=== PATIENT | female | born 1965 | race Caucasian/White ===

== ENCOUNTER → 2017-02-08 | Day surgery (SDC) | payer BC ==
[2017-02-01 15:34] LABS: BASO % 0.8 %; BASO ABS # 0.04 K/uL (0-0.2); COMPLETE YES; EOS % 3.1 %; HEMATOCRIT 40.8 % (37-47); IG% 0.2 %; LYMPH % 42.6 %; LYMPH ABS # 2.18 K/uL (1.2-3.4); MEAN CELL VOLUME 83.3 fL (80-100); MEAN CORPUSCULAR HEMOGLOBIN 29.4 pg (25-34); MEAN CORPUSCULAR HGB CONC 35.3 g/dl (32-36); MEAN PLATELET VOLUME 9.6 fL (7.4-10.4); MONO % 7.8 %; NEUT % 45.5 %; PLATELET COUNT 214 K/uL (130-400); WHITE BLOOD COUNT 5.12 K/uL (4.8-10.8)
[2017-02-01 16:04] LABS: BLOOD UREA NITROGEN 23 mg/dl (7-18); BUN/CREATININE RATIO 29.7 (10-20); CALCIUM 9.2 mg/dl (8.5-10.1); CARBON DIOXIDE 29 mmol/L (21-32); CHLORIDE 107 mmol/L (98-107); CREATININE 0.77 mg/dl (0.60-1.20); GLUCOSE 86 mg/dl (70-99); POTASSIUM 4.2 mmol/L (3.5-5.1); SODIUM 142 mmol/L (136-145)
[2017-02-02 09:48] VITALS: Ht 167.6 cm; Wt 80.0 kg
[~2017-02-08] VITALS: Ht 167.6 cm; Wt 80.0 kg
[~2017-02-08] MED LIST: ATROPINE SULFATE 0.1 MG/ML 5ML SYR IV PRN; CEFAZOLIN 2000 MG/60 ML D5W IV SCH; DEXAMETHASONE SOD INJ 4 MG/ML VIAL ONE; EpHEDrine SULFATE 50MG/5ML SYR ONE; EpHEDrine SULFATE INJ 50 MG/ML AMP IV PRN; FENTANYL CITRATE INJ 50 MCG/1 ML 2 ML VIAL IV PRN; FENTANYL CITRATE INJ 50 MCG/1 ML 2 ML VIAL ONE; HYDR-5688 PO; HYDROCODONE/ACETAMOPHEN 5/325MG TAB PO PRN; LACTATED RINGER'S 1000ML 1,000 ML IV SCH; LIDOCAINE HCL 1% 20 ML VIAL ONE; LIDOCAINE HCL 2% 2 ML VIAL (20MG/ML) ONE; MIDAZOLAM HCL 1 MG/ML 2ML VIAL ONE; ONDANSETRON INJ 2 MG/ML 2 ML VIAL IV PRN; ONDANSETRON INJ 2 MG/ML 2 ML VIAL ONE; PROPOFOL IV EMULSION 10 MG/ML 20 ML VIAL IV ONE; SODIUM CHLORIDE 0.9% 1000ML 1,000 ML IV SCH
--- NOTE | 2017-02-08 10:56 | History & Physical Bridge - [place] ---
H&P Re-Evaluation Bridge Note: I have examined the patient, reviewed the History & Physical and in the interval since the performance of the History & Physical I have noted the following changes of clinical significance: No changes noted
--- NOTE | 2017-02-08 13:27 | [facility] Post Operative Brief Note ---
Immediate Operative Summary Operative Date Feb 08, 2017. Pre-Operative Diagnosis Retained Hardware Right Ankle Post-Operative Diagnosis same Procedure(s) Performed Right Ankle Hardware (3 Medial Screws) Removal Surgeon Dr. Sho Bateman [employer]oc[employer] Electrical Designer Surgeon(s) Brandan Clement PA-C Estimated Blood Loss 3cc Findings as above Specimens 3 screws removed from Right Ankle with no evidence of failure per Dr. Bateman. The screws were decontaminated via [employer] and placed in a rigid container with the patient name and a Biohazard sticker. Complication(s) None Disposition Recovery Room / PACU
--- NOTE | 2017-02-08 13:29 | Discharge Instructions-SurgCtr ---
Discharge Instructions Date of Service Feb 08, 2017. Visit Reason for Visit: Trimalleolar Fracture S82.580s Discharge Discharge Diagnosis / Problem: SAME ABOVE Discharge Goals Goal(s): Decrease discomfort, Improve function Activity Recommendations Activity Limitations: as noted below Lifting Limitations: gradually increase as tolerated Exercise/Sports Limitations: gradually increase as tolerated Weightbearing Status: Right weightbearing (as tolerated) Anesthesia . Post Anesthesia Instructions: If you have had General Anesthesia or IV Sedation: * Do not drive today. * Resume driving when surgeon permits. * Do not make important decisions or sign legal documents today. * Call surgeon for: 1. Temperature elevations greater than 101 degrees F. 2. Uncontrollable pain. 3. Excessive bleeding. 4. Persistent nausea and vomiting. 5. Medication intolerance (nausea, vomiting or rash). * For nausea and vomiting use only clear liquids such as: tea, soda, bouillon until nausea subsides, then gradually increase diet as tolerated. * If you have any concerns or questions, call your surgeon's office. If physician is unavailable and it is an emergency, call 911 or go to the nearest emergency room. . Instructions / Follow-Up Instructions / Follow-Up MEDICATIONS: * Resume previous medications unless instructed otherwise by your surgeon. * Always take pain medication on a full stomach or with food to avoid upset stomach. * Do not drink alcohol or drive while taking narcotics. * Ibuprofen or Tylenol may be taken if narcotic not needed. SPECIAL CARE INSTRUCTIONS: __ None _X_ Keep extremity elevated and iced x 48 hours; apply ice 20-30 minutes 8-10 times/day. May remove at night. __ Crutches __ May discard when able __ Brace/Post-op shoe __ 24 hrs/day __ Remove at night _X_ Dressing __ Maintain until seen in office, may shower with plastic over site _X_ Remove dressings in 24-48 hours and then may shower _X_ Cover incisions with band-aids after showering __ Do not remove steri-strips Call physician if chills or temperature rises above 102 degrees or pain unrelieved by prescribed pain medications. Office [phone] Diet Recommendations Home Diet: no limitations Fluid Restriction: None Procedures Procedures Performed: Right Ankle Hardware (3 Medial Screws) Removal Pending Studies Studies pending at discharge: no Work Instructions Return To Work: after follow-up (OR WHEN PAIN IS TOLERATED ) Medical Emergencies . Who to Call and When: Medical Emergencies: If at any time you feel your situation is an emergency, please call 911 immediately. . Non-Emergent Contact Non-Emergency issues call your: Primary Care Provider Call Non-Emergent contact if: you have a fever, temperature is above 101.5 . . "Provider Documentation" section prepared by Phani Clement.
--- NOTE | 2017-02-08 13:47 | OPERATIVE REPORT ---
DATE OF OPERATION: 02/08/2017 PREOPERATIVE DIAGNOSIS: Painful hardware of the right ankle. POSTOPERATIVE DIAGNOSIS: Same. PROCEDURE: Right ankle hardware removal to include 3 screws. SURGEON: Dr. Raj Bateman. REFRIGERATOR ASSEMBLER: Brandan Clement PA-C, whose assistance was necessary for positioning of the ankle and helping with instrumentation. ANESTHESIA: General. COMPLICATIONS: None. CONDITION: Stable to PACU. INDICATIONS: Bhumi is a pleasant 51-year-old female who underwent an ORIF of her right ankle about a year ago. She did well postoperatively. Unfortunately, she did have medial-sided pain. She has no pain on the lateral side. X-rays showed possibility of irritation from the screws and she elected to undergo a hardware removal. DESCRIPTION OF PROCEDURE: On 02/08/2017, she arrived at [facility] for the above procedure. She was seen in the preoperative holding area and the operative extremity was identified and signed. She was given a preoperative antibiotic, taken back to the operating room, laid on the table in supine position and put under general anesthesia. The right ankle was then prepped and draped in sterile fashion. Time-out was done and the patient and operative extremity was properly identified. Incision was made over the previous scar over the medial malleolus. Dissection was taken down to the bone and the screws were identified. Fluoroscopy was used to help identify the screws. Once the screws were identified, they were removed with a screwdriver. Final fluoroscopic images showed complete removal of the 3 medial-sided screws. The incision was then closed with 3-0 nylon sutures in a mattress fashion. She was placed in a soft dressing, extubated, transferred to a [facility] and taken to the postanesthesia care unit in stable condition. She tolerated the procedure well. I attest to the content of the Intraoperative Record and any orders documented therein. Any exceptio ns are noted below.
[2017-02-08 14:00] VITALS: TEMP 36.2
--- NOTE | 2017-02-08 14:23 | Anesthesia Progress Nt - [facility] ---
Anesthesia Post Op Note Date & Time Feb 08, 2017 at 14:22 Vital Signs Pain Intensity: 0 Vital Signs Past 12 Hours Date Time Temp Pulse Resp B/P Pulse Ox O2 Delivery O2 Flow Rate FiO2 02/08/17 14:00 36.2 69 18 109/68 98 Room Air 02/08/17 13:57 71 02/08/17 13:57 71 94 02/08/17 13:56 72 12 96 02/08/17 13:56 70 12 02/08/17 13:55 119/68 02/08/17 13:55 36.5 98 Room Air 02/08/17 13:51 67 10 02/08/17 13:51 67 10 93 02/08/17 13:50 120/68 02/08/17 13:46 68 17 94 02/08/17 13:46 69 17 02/08/17 13:45 128/72 02/08/17 13:42 73 6 02/08/17 13:42 73 6 95 02/08/17 13:40 130/73 02/08/17 13:37 68 17 02/08/17 13:37 67 17 100 02/08/17 13:36 68 17 100 02/08/17 13:36 69 17 02/08/17 13:35 127/73 02/08/17 13:31 72 17 02/08/17 13:31 72 17 100 02/08/17 13:30 75 14 02/08/17 13:30 75 14 130/72 100 02/08/17 13:26 133/72 02/08/17 13:25 86 02/08/17 13:25 86 94 02/08/17 13:25 36.7 86 16 133/72 96 Mask 7 02/08/17 11:41 36.2 61 20 105/61 95 Room Air Notes Mental Status: alert / awake / arousable, participated in evaluation Pt Amnestic to Procedure: Yes Nausea / Vomiting: adequately controlled Pain: adequately controlled Airway Patency, RR, SpO2: stable & adequate BP & HR: stable & adequate Hydration State: stable & adequate Anesthetic Complications: no major complications apparent
[2017-02-08 14:30] VITALS: BP 111/73; O2SAT 100
== END | disposition home or self-care (01) ==
LOC: X.SURG 11:31
PROVIDERS: ATTEND Orthopaedic Surgery
DX: T84.84XA Pain due to internal orthopedic prosthetic devices, implants and grafts, initial encounter (principal); Y83.1 Surgical operation with implant of artificial internal device as the cause of abnormal reaction of the patient, or of later complication, without mention of misadventure at the time of the procedure; Z98.890 Other specified postprocedural states

== ENCOUNTER → 2017-09-11 | Outpatient (CLI) | payer BC | END | disposition home or self-care (01) | LOC: C.RDSM 11:00 | PROVIDERS: ATTEND Orthopaedic Surgery Sports Medicine | DX: Z09 Encounter for follow-up examination after completed treatment for conditions other than malignant neoplasm (principal) ==